=== PATIENT | female | born 1990 | race Caucasian/White ===

== ENCOUNTER 2016-09-18 00:48 | Emergency (ER) | payer OTHER ==
[2016-09-18] MEDS ORDERED: ACETAMINOPHEN 325 MG TABLET PO ONE (00:56)
--- NOTE | 2016-09-18 01:30 | RADIOLOGY REPORT (SQ) ---
EXAM DESCRIPTION: TIBIA FIBULA RIGHT COMPLETED DATE/TIME: 09/18/2016 1:16 am REASON FOR STUDY: injiury COMPARISON: CR, right knee 10/21/2012. NUMBER OF VIEWS: Two views. TECHNIQUE: Two radiographic images acquired of the right tibia and fibula to include the knee and an kle in at least one projection. LIMITATIONS: None. FINDINGS: MINERALIZATION: Normal. BONES: No acute fracture or dislocation. No worrisome bone lesions. SOFT TISSUES: No obvious swelling or foreign body. OTHER: No other significant finding. IMPRESSION: NEGATIVE STUDY OF THE RIGHT TIBIA AND FIBULA. NO RADIOGRAPHIC EVIDENCE OF ACUTE INJURY. TECHNICAL DOCUMENTATION: JOB ID: [id number] [employer]- All Rights Reserved
[2016-09-18] MEDS ORDERED: IBUPROFEN 600 MG TABLET PO ONE (01:43)
[2016-09-18] MEDS ORDERED: MORPHINE SULFATE IR 15 MG TABLET PO ONE (01:45)
--- NOTE | 2016-09-18 01:45 | ER Document Report ---
ED General - General Chief Complaint: Leg Pain Stated Complaint: FALL,RIGHT LEG PAIN Time Seen by Provider: 09/18/16 01:21 Notes: Patient is a 26-year-old female without past medical history who presents with pain to the distal right lower extremity after she was running, slipped and fell hitting her leg into a dresser. She did sustain a superficial abrasion over the tibial surface and notes a severe, constant, throbbing pain to the area. Walking or moving worsens the pain. She has not tried anything for relief of the pain. She has not seen her primary doctor regarding today's concerns. She denies any additional injuries. No history of similar injury in the past. TRAVEL OUTSIDE OF THE [place] IN LAST 30 DAYS: No - Related Data Allergies/Adverse Reactions: nifedipine [From Procardia] Allergy (Verified 10/21/12 09:46) swelling, rash oxycodone HCl [From Percocet] Adverse Reaction (Verified 10/21/12 09:46) "creepy crawly sensation" Past Medical History - General Information source: Patient - Social History Smoking Status: Never Smoker Frequency of alcohol use: None Drug Abuse: None Lives with: Spouse/Significant other Family History: Reviewed & Not Pertinent Patient has suicidal ideation: No Patient has homicidal ideation: No Pulmonary Medical History: Reports: Hx Asthma Neurological Medical History: Reports: Hx Migraine Renal/ Medical History: Reports: Hx Ectopic . Denies: Hx Peritoneal Dialysis Psychiatric Medical History: Reports: Hx Post Traumatic Stress Disorder Past Surgical History: Reports: Hx Hysterectomy, Hx Tubal Ligation - Immunizations Hx Diphtheria, Pertussis, Tetanus Vaccination: Yes Review of Systems - Review of Systems Notes: Constitutional: Negative for fever. Eyes: Negative for visual changes. ENT: Negative for facial injury Cardiovascular: Negative for chest injury. Respiratory: Negative for shortness of breath. Gastrointestinal: Negative for abdominal injury. Genitourinary: Negative for genital injury Musculoskeletal: Positive for right leg injury Skin: Negative for laceration/abrasions. Neurological: Negative for head injury. Physical Exam - Vital signs Vitals: Temp Pulse Resp BP Pulse Ox 99.4 F 94 18 133/74 H 100 09/18/16 00:52 09/18/16 00:52 09/18/16 00:52 09/18/16 00:52 09/18/16 00:52 Interpretation: Normal Notes: PHYSICAL EXAMINATION: GENERAL: Well-appearing, well-nourished and in no acute distress. HEAD: Atraumatic, normocephalic. EYES: sclera anicteric, conjunctiva are normal. ENT: Moist mucous membranes. NECK: Normal range of motion LUNGS: Normal work of breathing HEART: 2+ DP pulses bilaterally EXTREMITIES: There are superficial abrasions of the proximal tibial plateau on the right with associated ecchymoses and pain to palpation of the area. 5 out of 5 dorsi and plantar flexion bilaterally NEUROLOGICAL: No focal neurological deficits. Moves all extremities spontaneously and on command. PSYCH: Normal mood, normal affect. SKIN: Warm, Dry, normal turgor, abrasions as above Course - Re-evaluation Re-evalutation: 09/18/16 01:44 Patient presents with a superficial abrasion of the right tibial surface after hitting it on a dresser. She does have diffuse bruising over the tibial plateau but no obvious deformity. Strong 2+ DP pulse bilaterally. Full dorsi and plantar flexion. She is able to bear weight with pain. X-ray does not demonstrate any acute fracture. Her tetanus will be updated. At this time will discharge with return precautions and follow-up recommendations. Verbal discharge instructions given a the bedside and opportunity for questions given. Medication warnings reviewed. Patient is in agreement with this plan and has verbalized understanding of return precautions and the need for primary care follow-up in the next 24-72 hours. - Vital Signs Vital signs: Temp Pulse Resp BP Pulse Ox 99.4 F 94 18 133/74 H 100 09/18/16 00:52 09/18/16 00:52 09/18/16 00:52 09/18/16 00:52 09/18/16 00:52 - Diagnostic Test Radiology reviewed: Image reviewed, Reports reviewed Radiology results interpreted by me: 09/18/16 02:40 Right tib-fib x-ray: No acute fracture or dislocation Discharge - Discharge Clinical Impression: Right leg injury Qualifiers: Encounter type: initial encounter Qualified Code(s): S89.91XA - Unspecified injury of right lower leg, initial encounter Condition: Good Disposition: HOME, SELF-CARE Additional Instructions: Your x-ray does not show any acute fracture today. You likely have a soft tissue injury. For your pain: Take ibuprofen 600 mg and acetaminophen 1000 mg every 6 hours together as needed for pain. Continue to apply ice to the area is much your able. Please follow-up with your primary care physician if you do not have improving your symptoms in the next 1-2 weeks. Please return immediately if you develop weakness, numbness, spreading redness from the area, or any other symptoms that are concerning to you.
[2016-09-18] MEDS ORDERED: DIPH/PERTUSS(ACELL)/TETANUS VAC/PF 0.5 ML SYR (>=10YO) IM ONE (02:27)
[2016-09-18 02:52] VITALS: BP 119/79
== END 2016-09-18 02:00 | disposition home or self-care (01) ==
LOC: ER 00:48
DX: S89.91XA Unspecified injury of right lower leg, initial encounter (principal); M79.604 Pain in right leg; W01.0XXA Fall on same level from slipping, tripping and stumbling without subsequent striking against object, initial encounter
CPT/HCPCS: 90471; 90715; 99283